=== PATIENT | female | born 1995 | race Caucasian/White ===

== ENCOUNTER 2017-05-31 01:05 | Emergency (ER) | payer OTHER ==
[~2017-05-31] VITALS: Ht 172.7 cm; Wt 65.8 kg
[2017-05-31 01:10] VITALS: TEMP 36.3; O2SAT 97; Ht 172.7 cm; Wt 65.8 kg
[2017-05-31 01:55] LABS: CALCIUM 8.3 mg/dl (8.5-10.1); CREATININE 1.15 mg/dl (0.60-1.20)
[2017-05-31] MEDS ORDERED: BCPILLS PO (02:02)
[2017-05-31] MEDS ORDERED: POTASSIUM CHLORIDE 10 MEQ TABCR PO STA (04:24)
--- NOTE | 2017-05-31 04:26 | EMERGENCY ROOM VISIT NOTE ---
History First contact with patient: 01:30 Chief Complaint: ALCOHOL OVERDOSE Stated Complaint: ALCOHOL OVERDOSE Nursing Triage Summary: pt brought to ed via ems. pt was at a [employer] and the host called ems because she was drunk, vomiting and had no friends. pt admits to drinking liquor and marijuana History of Present Illness The patient is a 21 year old female who presents to the Emergency Room with complaints of alcohol intoxication he was vomiting after drinking alcohol. EMS was summoned. Patient states she has had alcohol. No drugs. Patient denies fall, chest pain, dyspnea, abdominal pain or any other medical complaints. Review of Systems An 10 system review of systems was completed with positives and pertinent negatives listed in the HPI. Past Medical/Surgical History none Social History Smoking Status: Never Smoker Alcohol Use: occasionally Drug Use: none Occupation Status: [employer] Current/Historical Medications Scheduled Control Pills ( Control Pills), 1 TAB PO DAILY Physical Exam Vital Signs Date Time Temp Pulse Resp B/P (MAP) Pulse Ox O2 Delivery O2 Flow Rate FiO2 05/31/17 03:00 79 16 129/68 100 Room Air 05/31/17 02:00 72 16 128/56 100 Room Air 05/31/17 01:30 82 16 123/50 97 Room Air 05/31/17 01:15 92 05/31/17 01:10 97 Room Air 05/31/17 01:10 36.3 100 18 127/64 97 Room Air Physical Exam PHYSICAL EXAM: VITALS: Vitals are noted on the nurse's note and reviewed by myself. Vital signs stable. GENERAL: Female with EtOH odor, in no acute distress, nondiaphoretic, well- developed well-nourished. The patient is visibly intoxicated. SKIN: The skin was without obvious lacerations, abrasions, or rashes. There is no tenting of the skin. Capillary reflex less than 2 seconds. HEENT: Normocephalic, atraumatic. PERRLA. EOMI. Conjunctiva with mild injection without icterus. Tympanic membranes without erythema or effusion bilaterally no hemotympanum. External auditory canals are clear. Nares patent bilaterally. No epistaxis. Oropharynx without erythema or exudate. Uvula midline. Oral mucosal moist. No lymphadenopathy. Neck is supple without cervical spine tenderness. HEART: Regular rate and rhythm without murmurs gallops or rubs. Peripheral pulses 2+. LUNGS: Clear to auscultation bilaterally without wheezes, rales or rhonchi. ABDOMEN: Positive bowel sounds x 4. Normal tympanic percussion. Soft, nontender, without masses or organomegaly. MUSCULOSKELETAL: Gross motor function of the upper and lower extremities intact. The patient has a staggering gait. NEUROLOGIC: The patient is visibly intoxicated. Once they were more sober they were alert and oriented to person place and time. Medical Decision & Procedures Laboratory Results 05/31/17 01:18 Test 05/31/17 01:18 Anion Gap 13.0 mmol/L (3-11) Est Creatinine Clear Calc Drug Dose 78.7 ml/min Estimated GFR () 79.3 Estimated GFR (Non- 68.4 BUN/Creatinine Ratio 13.1 (10-20) Calcium Level 8.3 mg/dl (8.5-10.1) Ethyl Alcohol mg/dL 171.0 mg/dl (0-3) ED Course Prior records/ancillary studies reviewed. Triage Nursing notes reviewed. Additional history obtained from EMS. The patient's history was concerning for altered mental status and a possible alcohol overdose. Differential diagnosis: Etiologies such as alcohol intoxication, toxicologic, infection, hypoglycemia, electrolyte abnormalities, cardiac sources, intracerebral event, neurologic, as well as others were entertained. Physical examination: As above. The patient is clinically intoxicated. no trauma noted. ER treatment provided: Monitoring Aspiration precautions The patient was frequently reassessed. Diagnostic interpretation by me: Cardiac monitoring did not reveal any evidence of dysrhythmia. The labs revealed hypokalemia. The patient's blood alcohol level was 171 mg/dL. The patient's history was reviewed once they were more coherent and their intoxication cleared. The patient states they have been in good health recently and had no medical complaints. The patient admitted to consuming alcohol. No additional concerning findings were noted. The patient complained of no symptoms to suggest assault. This appears to be consistent with an isolated overdose of alcohol. By the evaluation outlined above emergent etiologies such as trauma, infection, hypoglycemia, electrolyte abnormalities, cardiac sources, intracerebral event, neurologic,as well as others were deemed relatively unlikely. The patient was informed about the findings as listed above. The patient was counseled on the dangers of excessive alcohol use. I gave my usual and customary discussion regarding this issue. All questions were answered and the patient was pleased with the treatment. Return instructions were outlined and the patient was discharged in stable condition once their mental status improved and a safe destination was confirmed. Outpatient prescription management: None Referral: The patient was referred back to their primary care physician for follow-up in 2 to 3 days for a recheck of their current condition. Medical Decision As above Medication Reconcilliation Current Medication List: was personally reviewed by me Blood Pressure Screening Patient's blood pressure: Normal blood pressure Impression Primary Impression: Alcohol use with intoxication Additional Impression: Hypokalemia Departure Information Dispostion Home / Self-Care Condition GOOD Referrals No Doctor, Assigned (PCP) Patient Instructions My [facility] [employer] Additional Instructions Keep well-hydrated. Tylenol every 6 hours as needed for pain (Maximum 3000 mg Tylenol in 24 hr period). Follow up with family doctor and/or health services as needed. No driving for the next 24 hours. Recommend no alcohol for the next 48 hours and avoid binge drinking in the future. Return to ER sooner for chest pain, abdominal pain, worsening signs or symptoms or as needed. Problem Qualifiers
[2017-05-31 05:30] VITALS: BP 118/53; PULSE 106; O2SAT 98
== END 2017-05-31 05:51 | disposition home or self-care (01) ==
LOC: EDBD 01:13 → C.EDB 01:16
DX: F10.929 Alcohol use, unspecified with intoxication, unspecified (principal); Y90.6 Blood alcohol level of 120-199 mg/100 ml; E87.6 Hypokalemia; Z79.3 Long term (current) use of hormonal contraceptives